=== PATIENT | female | born 1975 | race Caucasian/White ===

== ENCOUNTER → 2016-11-16 | Outpatient (CLI) | payer BC ==
[~2016-11-16] MED LIST: CELEXA10 MG PO; FLEXERIL 1010 MG/TAB PO; MIRENA52 MG IU
== END ==
LOC: COL.RAD 14:59
DX: S06.0X0A Concussion without loss of consciousness, initial encounter (principal)

== ENCOUNTER → 2020-02-14 | Outpatient (CLI) | payer BC | LOC: MC.RAD 08:15 | DX: Z12.31 Encounter for screening mammogram for malignant neoplasm of breast (principal); N64.89 Other specified disorders of breast ==

== ENCOUNTER → 2020-02-25 | Outpatient (CLI) | payer BC | LOC: MC.RAD 13:00 | DX: N64.89 Other specified disorders of breast (principal) ==

== ENCOUNTER → 2021-10-01 | Outpatient (CLI) | payer BC | LOC: COL.PUL 11:16 | DX: J45.909 Unspecified asthma, uncomplicated (principal) ==

== ENCOUNTER → 2021-11-13 | Outpatient (CLI) | payer BC | LOC: COL.RAD 14:58 | DX: J98.11 Atelectasis (principal) | CPT/HCPCS: Q9967 ==

== ENCOUNTER → 2023-09-05 | Outpatient (CLI) | payer BC ==
[~2023-09-05] MED LIST changes: +00186-0370-20 IH; +ADIPEX-P37.5 MG PO; +AMOXICILLIN 8751 TAB PO; +BUSPAR10 MG PO; +LYRICA 75MG CAP75 MG PO; +NORCO 325 MG-51 TAB PO; +PROAIR HFA0.09 MG/AC IH; +SINGULAIR 110 MG/TAB PO; +SYNTHROID0.05 MG/TA PO; +VESICARE 5MG5 MG PO; +VITAMIN D 50,1.25 MG PO; +ZYRTEC 10MG10 MG PO
== END ==
LOC: MC.RAD 09:00
DX: N60.12 Diffuse cystic mastopathy of left breast (principal); N64.89 Other specified disorders of breast